=== PATIENT | female | born 1930 | race Two or more races ===

== ENCOUNTER 2019-04-04 00:39 | Inpatient (IN) | payer OTHER, MEDICARE ==
[~2019-04-04] VITALS: Ht 142.2 cm; Wt 45.4 kg
[2019-04-04 03:30] VITALS: BP 117/50
[2019-04-04 04:30] VITALS: BP 111/50
--- NOTE | 2019-04-04 04:30 | NUR ---
TELE/RN NOTES RECEIVED NEW DIRECT ADMIT PATIENT FROM [facility] RECEIVED ON A GURNEY ACCOMPANIED BY 2 EMT AND FAMILY MEMBERS. PATIENT AWAKE, ALERT X2, TAJIK SPEAKING, LILA CARDENAS ASSISTED WITH TRANSLATION. PATIETN APPEAR WEAK, SKIN WARM TO TOUCH, OPENS EYES WITH UPPER DENTURES, WEARS GLASSES AND HEARING AIDS. CAN FOLLOW SIMPLE COMMANDS, FAMILY WILL BRING HOME MEDICATIONS, UNABLE TO RECALL THEM. TO FOLLOW UP ADMITTING DR, WITH HX OF HYPERTENSION AND CONCERN OF ABDOMINAL PAIN WITH FEVER AND WEAKNESS, WITH LOW SODIUM LEFT AC GAUGE 20 INTACT AND PATENT, BELONGINGS CHECK, JAIRON SOUNDS CLEAR, ON OXYGEN AT 2L VIA NC, RESPIRATIONS EVEN AND UNLABORED, DENIES PAIN. ROOM ORIENTATION PROVIDED WILL MONITOR.
--- NOTE | 2019-04-04 06:07 | NUR ---
TELE/RN NOTES TELE READING AT NORMAL SINUS RHYTHM WITH SINUS ARITHMIA ON EKG READING. MD BURNS ADMITTING MD, REPORTED PATIENT ARRIVAL, MEDICATION TO BE RECONCILED AND CT ABDOMINAL PELVIS WITH CONTRAST FINDING WITH MODERATELY ENLARGED HEART, LEFT KIDNEY DECREASED ENHANCEMENT ON LIVER POLE FOR PYLONEPHRITIS. MADE AWARE,
[2019-04-04] MEDS ORDERED: ZOLPIDEM TARTRATE 5 MG TABLET PO PRN (06:30)
[2019-04-04] MEDS ORDERED: MAGNESIUM HYDROXIDE 30 ML UDC PO PRN (06:30)
[2019-04-04] MEDS ORDERED: HYDROCODONE/APAP 5/325MG 1 EACH TABLET PO PRN (06:30)
[2019-04-04] MEDS ORDERED: Z GUARD REMEDY 2 OZ OINT TP PRN (06:30)
[2019-04-04] MEDS ORDERED: ONDANSETRON HCL/PF 4 MG/2 ML VIAL IVP PRN (06:30)
[2019-04-04] MEDS ORDERED: MAG HYDROX/AL HYDROX/SIMETH 30 ML UDC PO PRN (06:30)
[2019-04-04] MEDS ORDERED: ACETAMINOPHEN 325 MG TABLET PO PRN (06:30)
--- NOTE | 2019-04-04 06:43 | NUR ---
TELE/RN NOTES PER FAMILY WILL PROVIDE HOME MEDICATION AND BRING MEDIACTION TO CLARIFY THE DOSES SUCH DILTIAZEM 180 MG DAILY REPORTED .
[2019-04-04 07:15] LABS: BASOPHILS % (AUTO) 0.3 % (0.0-2.0); EOSINOPHILS % (AUTO) 1.2 % (0.0-6.0); HEMATOCRIT 35 % (33-45); HEMOGLOBIN 11.6 g/dL (11.5-14.8); LYMPHOCYTES % (AUTO) 8.6 % (20.0-44.0); MEAN CORPUSCULAR HGB CONC 33 g/dl (31.0-36.0); MEAN CORPUSCULAR VOLUME 89 fL (82-100); MONOCYTES # (AUTO) 1.4 /CMM (0.1-1.30); MONOCYTES % (AUTO) 11.3 % (2.0-12.0); NEUTROPHILS # (AUTO) 9.6 /CMM (1.8-8.9); NEUTROPHILS % (AUTO) 78.6 % (43.0-81.0); PLATELET COUNT (AUTO) 412 /CMM (150-450); WHITE BLOOD COUNT (AUTO) 12.2 K/uL (4.3-11.0)
[2019-04-04 07:41] LABS: ALANINE AMINOTRANSFERASE 19 U/L (12-78); ALBUMIN 2.7 g/dL (3.4-5.0); ALKALINE PHOSPHATASE 69 U/L (46-116); ASPARTATE AMINOTRANSFERASE 16 U/L (15-37); BILIRUBIN,TOTAL 0.2 mg/dL (0.2-1.0); CALCIUM, SERUM 9.2 mg/dL (8.5-10.1); CARBON DIOXIDE 28 mmol/L (21-32); CHLORIDE 101 mmol/L (98-107); CREATININE 1.2 mg/dL (0.6-1.3); GLUCOSE 102 mg/dL (74-106); MAGNESIUM 1.8 mg/dL (1.8-2.4); PHOSPHORUS 2.7 mg/dL (2.5-4.9); POTASSIUM 3.9 mmol/L (3.5-5.1); SODIUM SERUM 135 mmol/L (136-145); UREA NITROGEN, BLOOD 24 mg/dL (7-18)
[2019-04-04 07:52] LABS: THYROID STIMULATING HORMONE 1.787 uIU/mL (0.358-3.74)
[2019-04-04 08:00] VITALS: BP 118/59
--- NOTE | 2019-04-04 08:00 | NUR ---
SHOE SALESMAN OPENING NOTES Received Patient comfortable and asleep in bed. A/O x 2-3. VS stable with no acute distress. Breathing even and unlabored on room air with no respiratory distress. No signs and symptoms of pain at this time. Telemonitor in place and operational reading SR with 1st Degree Block and PVC with HR-74. 20g PIV on LAC clean, dry, intact and flushing well. Bilateral hearing aids are in bilateral ears. Safety precautions in place. Bed locked and set to lowest position with side rails x 2 up. Will continue to monitor.
[2019-04-04] MEDS: LEVOTHYROXINE SODIUM 75 MCG TABLET PO SCH (08:54)
[2019-04-04] MEDS: PANTOPRAZOLE 40 MG TABLET.DR PO SCH (08:54)
[2019-04-04] MEDS: IV NS 0.9% 1,000 ML IV PRN (08:55)
[2019-04-04] MEDS: DILTIAZEM HCL CD 180 MG PO SCH (08:55)
[2019-04-04] MEDS: METOPROLOL TARTRATE 50 MG TABLET PO SCH ×2 (10:40→17:19)
[2019-04-04] MEDS ORDERED: CEFTRIAXONE 1 G in IV D5W 50 ML IV SCH (11:00)
[2019-04-04] MEDS ORDERED: MELO-105 PO (12:05)
[2019-04-04] MEDS ORDERED: DILT180C92 PO (12:05)
[2019-04-04] MEDS ORDERED: ATOR10TA PO (12:05)
[2019-04-04] MEDS ORDERED: CHOL100044 PO (12:05)
[2019-04-04] MEDS ORDERED: MULT-447 PO (12:05)
[2019-04-04] MEDS ORDERED: CALC-20 PO (12:05)
[2019-04-04] MEDS ORDERED: MYRBETRIQ PO (12:05)
[2019-04-04] MEDS ORDERED: LEVO50TA8 PO (12:05)
[2019-04-04] MEDS ORDERED: METO50TA16 PO (12:05)
[2019-04-04] MEDS ORDERED: AMLO5TAB9 PO (12:05)
[2019-04-04] MEDS ORDERED: BIOT5000 PO (12:05)
[2019-04-04] MEDS ORDERED: PANT40TA4 PO (12:05)
[2019-04-04] MEDS ORDERED: LACT-58 PO (12:08)
[2019-04-04] MEDS: CEFTRIAXONE 1 G in IV D5W 50 ML IV SCH (13:14)
[2019-04-04 15:56] LABS: APPEARANCE,URINE SL CLOUDY (CLEAR); BILIRUBIN,URINE NEGATIVE (NEGATIVE); BLOOD, URINE TRACE Ery/uL (NEGATIVE); COLOR,URINE YELLOW (YELLOW); KETONES,URINE NEGATIVE (NEGATIVE); LEUKOCYTE ESTERASE ,URINE 1+ (NEGATIVE); NITRITE, URINE NEGATIVE (NEGATIVE); PROTEIN,URINE NEGATIVE (NEGATIVE); UGLUCOSE NEGATIVE (NEGATIVE); UROBILINOGEN,URINE 0.2 EU/dL (0.2)
[2019-04-04 16:00] VITALS: BP 118/59
[2019-04-04 16:22] LABS: BACTERIA,URINE Rare /HPF (None Seen); RBC,URINE 0-3 /HPF (0-2); SQUAMOUS EPITHELIAL CELL,UR Few /HPF (None Seen)
--- NOTE | 2019-04-04 19:22 | NUR ---
MS EPHRAIM OPENING NOTES Patient awake and watching TV in bed. A/O x 2-3, Liberian speaking. VS stable with no acute distress. Breathing even and unlabored on room air with no respiratory distress. Denies pain at this time. 20g PIV on LAC clean, dry, intact and flushing well with NS running at 75ml/hr. Bilateral hearing aids are in bilateral ears. Safety precautions in place. Bed locked and set to lowest position with side rails x 2 up. All needs rendered at this time. Family at bedside. Will endorse plan of care to oncoming shift. Addendum: 04/04/19 at 1923 by AZAEL RICHARDSON RN MS YE CLOSING NOTES
--- NOTE | 2019-04-04 19:50 | NUR ---
MS RN NOTE: PATIENT RESTING IN BED, NO ACUTE DISTRESS NOTED, FAMILY AT BEDSIDE. BREATHING EVEN AND UNLABORED, NO SOB NOTED. IV TO LAC IN PLACE, INFUSING NS AT 75ML/HR. BED LOCKED AND IN LOWEST POSITION, CALL LIGHT IN REACH. WILL CONTINUE TO MONITOR.
[2019-04-04 20:00] VITALS: BP 133/69
--- NOTE | 2019-04-05 03:00 | NUR ---
MS RN NOTE: PATIENT RESTING IN BED, NO ACUTE DISTRESS NOTED. BREATHING EVEN AND UNLABORED, NO SOB NOTED. BED LOCKED AND IN LOWEST POSITION, CALL LIGHT IN REACH. WILL CONTINUE TO MONITOR.
--- NOTE | 2019-04-05 06:20 | NUR ---
MS RN NOTE: PATIENT RESTING IN BED, NO ACUTE DISTRESS NOTED. BREATHING EVEN AND UNLABORED, NO SOB NOTED. IV TO LAC IN PLACE, INFUSING NS AT 75ML/HR. BED LOCKED AND IN LOWEST POSITION, CALL LIGHT IN REACH. WILL ENDORSE TO DAY NURSE TO CONTINUE WITH PLAN OF CARE.
[2019-04-05 06:39] LABS: BASOPHILS % (AUTO) 0.4 % (0.0-2.0); EOSINOPHILS % (AUTO) 1.4 % (0.0-6.0); HEMATOCRIT 34 % (33-45); HEMOGLOBIN 11.4 g/dL (11.5-14.8); LYMPHOCYTES # (AUTO) 0.8 /CMM (0.8-4.8); LYMPHOCYTES % (AUTO) 7.6 % (20.0-44.0); MEAN CORPUSCULAR HGB CONC 34 g/dl (31.0-36.0); MEAN CORPUSCULAR VOLUME 88 fL (82-100); MONOCYTES # (AUTO) 1.1 /CMM (0.1-1.30); MONOCYTES % (AUTO) 10.1 % (2.0-12.0); NEUTROPHILS # (AUTO) 8.9 /CMM (1.8-8.9); NEUTROPHILS % (AUTO) 80.5 % (43.0-81.0); PLATELET COUNT (AUTO) 454 /CMM (150-450); RED BLOOD CELL COUNT(AUTO) 3.86 MIL/uL (4.0-5.2)
[2019-04-05 06:45] LABS: ALANINE AMINOTRANSFERASE 19 U/L (12-78); ALBUMIN 2.5 g/dL (3.4-5.0); ALKALINE PHOSPHATASE 69 U/L (46-116); ASPARTATE AMINOTRANSFERASE 18 U/L (15-37); BILIRUBIN,TOTAL 0.2 mg/dL (0.2-1.0); CALCIUM, SERUM 8.9 mg/dL (8.5-10.1); CARBON DIOXIDE 30 mmol/L (21-32); CHLORIDE 100 mmol/L (98-107); CREATININE 0.9 mg/dL (0.6-1.3); GLUCOSE 111 mg/dL (74-106); MAGNESIUM 1.6 mg/dL (1.8-2.4); PHOSPHORUS 2.4 mg/dL (2.5-4.9); POTASSIUM 3.5 mmol/L (3.5-5.1); SODIUM SERUM 136 mmol/L (136-145); TOTAL PROTEIN, SERUM 6.8 g/dL (6.4-8.2); UREA NITROGEN, BLOOD 13 mg/dL (7-18)
[2019-04-05 06:49] LABS: CHOLESTEROL 109 mg/dL (<200); HDL CHOLESTEROL 36 mg/dL (40-60); LDL 56 mg/dL (0-99); TRIGLYCERIDES 56 mg/dL (30-150)
--- NOTE | 2019-04-05 07:34 | NUR ---
MS RN OPENING NOTES RECEIVED PT AWAKE, AMBULATORY WITH CANE AND 1 ASSIST. ITALIAN SPEAKING. TOLERATING RA, WITH NO ACUTE RESPIRATORY DISTRESS NOTED. PT DENIES ANY PAIN OR DISCOMFORT. ALSO, DENIES ANY CONCERNS AND QUESTIONS. IVF NS AT 75ML/HR TO LAC G20, INTACT AND FLUID INFUSING WELL. PT KEPT COMFORTABLE. PT'S BED IN LOWEST, LOCKED POSITION WITH SR X2. CALL LIGHT WITHIN REACH. WILL CONTINUE PLAN OF CARE.
[2019-04-05 08:00] VITALS: BP 118/54
[2019-04-05] MEDS: LEVOTHYROXINE SODIUM 75 MCG TABLET PO SCH (08:12)
[2019-04-05] MEDS: PANTOPRAZOLE 40 MG TABLET.DR PO SCH (08:12)
[2019-04-05] MEDS: DILTIAZEM HCL CD 180 MG PO SCH (08:12)
[2019-04-05] MEDS: METOPROLOL TARTRATE 50 MG TABLET PO SCH ×2 (08:12→17:06)
[2019-04-05] MEDS: Magnesium 1GM/D5W 100ML PREMIX 100 ML IV SCH ×2 (10:42→12:06)
[2019-04-05] MEDS ORDERED: K PHOS NEUTRAL 250 MG TABLET PO ONE (11:00)
[2019-04-05] MEDS: IV NS 0.9% 1,000 ML IV PRN (11:02)
[2019-04-05] MEDS ORDERED: LEVO500T75 PO (11:15)
[2019-04-05] MEDS: CEFTRIAXONE 1 G in IV D5W 50 ML IV SCH (13:25)
[2019-04-05] MEDS ORDERED: PNEUMOCOCCAL 23-VAL P-SAC VAC 0.5 ML VIAL SQ ONE (15:00)
--- NOTE | 2019-04-05 15:29 | NUR ---
MS RN NOTES PNEUMONIA VACCINE 23 GIVEN TO LEFT DELTOID PER PT'S REQUEST AND PER FAMILY PRIOR DISCHARGE.
[2019-04-05 16:00] VITALS: BP 120/64
[2019-04-05 17:06] VITALS: BP 120/64
--- NOTE | 2019-04-05 18:07 | NUR ---
MS MEDICAL STAFF CREDENTIALING COORDINATOR NOTES PT TO DISCHARGE TO HOME. PT PICKED UP BY 2 FAMILY MEMBERS. REVIEWED AND SIGNED DISCHARGE INSTRUCTIONS AND INVENTORY LIST BY SON/DEBBY. ALL BELONGINGS WITH THE PATIENT AND FAMILY. PT TOLERATING RA, WITH NO ACUTE RESPIRATORY DISTRESS NOTED. PT AMBULATORY WITH OWN FWW. PT DENIES ANY PAIN OR DISCOMFORT AT THE TIME OF DISCHARGE. VS STABLE AND RECORDED. PT CLAIMED SKIN IS INTACT AND REFUSED TO TAKE PICTURES OF SKIN. ALL NEEDS AND CARE ATTENDED. PIV TO LAC REMOVED, APPLIED DRY DRESSING. INTERIOR WALL ASSEMBLER ESCORTED PT WITH FAMILY TO THE LOBBY. PT LEFT THE UNIT AT 1755. CN/LESLI AND MEDICAL DEVICE ASSEMBLER/TS AWARE OF DISCHARGE.
== END 2019-04-05 17:55 | disposition home or self-care (01) | DRG 463 ==
LOC: TELE 04:24 → MED 12:26
PROVIDERS: ADMIT Internal Medicine; ATTEND Internal Medicine
DX: N10 Acute pyelonephritis (principal); N17.0 Acute kidney failure with tubular necrosis; E87.1 Hypo-osmolality and hyponatremia; E88.09 Other disorders of plasma-protein metabolism, not elsewhere classified; M48.04 Spinal stenosis, thoracic region; E44.1 Mild protein-calorie malnutrition; M48.54XA Collapsed vertebra, not elsewhere classified, thoracic region, initial encounter for fracture; B96.89 Other specified bacterial agents as the cause of diseases classified elsewhere; I10 Essential (primary) hypertension; N39.0 Urinary tract infection, site not specified; E03.9 Hypothyroidism, unspecified; Z90.49 Acquired absence of other specified parts of digestive tract; Z83.3 Family history of diabetes mellitus; Z79.899 Other long term (current) drug therapy; M48.061 Spinal stenosis, lumbar region without neurogenic claudication; N28.1 Cyst of kidney, acquired
CPT/HCPCS: 36415; 80053-TC; 80061-TC; 81000-TC; 83735-TC; 84100-TC; 84443-TC; 85025-TC; 87040-TC; 87081-TC; 87086-TC; 90732; 97116-TC; 97530-TC; G0378; J0696; J3475; J7030; J7060

== ENCOUNTER 2020-07-19 14:50 | Emergency (ER) | payer MEDICARE, OTHER ==
[~2020-07-19] VITALS: Ht 149.9 cm; Wt 51.3 kg
[~2020-07-19 14:50] MED LIST: AMLO5TAB9 PO; ATOR10TA PO; BIOT5000 PO; CALC-20 PO; CHOL100044 PO; DILT180C92 PO; LACT-58 PO; LEVO500T23 PO; LEVO50TA8 PO; MELO-105 PO; METO50TA16 PO; MULT-447 PO; MYRBETRIQ PO; PANT40TA49 PO
--- NOTE | 2020-07-19 15:00 | NUR ---
cordell, c/o abd pain x 1 month, +nausea vomiting since yesterday. 9/10 pain scale. Patient a/ox4, peruvian speaking, verbally responsive, no distress noted. Attached to the shelter monitor.
[2020-07-19] MEDS ORDERED: ONDANSETRON HCL/PF 4 MG/2 ML VIAL ONE (15:09)
--- NOTE | 2020-07-19 15:27 | NUR ---
IV LINE ESTABLISHED, BLOOD DRAWN FROM LINE AND SENT TO LAB. PATIENT PLACED ON A BED SALCIDO FOR URINE SAMPLE.
[2020-07-19] MEDS ORDERED: IV NS 0.9% 500 ML BAG IV ONE (15:30)
[2020-07-19 15:33] LABS: BASOPHILS # (AUTO) 0.1 /CMM (0.0-0.2); BASOPHILS % (AUTO) 1.2 % (0.0-2.0); EOSINOPHILS % (AUTO) 3.1 % (0.0-6.0); HEMATOCRIT 29 % (33-45); HEMOGLOBIN 10.2 g/dL (11.5-14.8); LYMPHOCYTES # (AUTO) 0.8 /CMM (0.8-4.8); LYMPHOCYTES % (AUTO) 13.8 % (20.0-44.0); MEAN CORPUSCULAR HGB CONC 35 g/dl (31.0-36.0); MEAN CORPUSCULAR VOLUME 91 fL (82-100); MONOCYTES # (AUTO) 0.7 /CMM (0.1-1.30); MONOCYTES % (AUTO) 10.8 % (2.0-12.0); NEUTROPHILS # (AUTO) 4.3 /CMM (1.8-8.9); NEUTROPHILS % (AUTO) 71.1 % (43.0-81.0); PLATELET COUNT (AUTO) 456 /CMM (150-450); RED BLOOD CELL COUNT(AUTO) 3.25 MIL/uL (4.0-5.2)
[2020-07-19 15:59] LABS: CALCIUM, SERUM 8.7 mg/dL (8.5-10.1); CARBON DIOXIDE 30 mmol/L (21-32); CHLORIDE 93 mmol/L (98-107); CREATININE 0.8 mg/dL (0.6-1.3); GLUCOSE 92 mg/dL (74-106); POTASSIUM 4.4 mmol/L (3.5-5.1); SODIUM SERUM 125 mmol/L (136-145); UREA NITROGEN, BLOOD 11 mg/dL (7-18)
[2020-07-19 16:05] LABS: ALANINE AMINOTRANSFERASE 25 U/L (12-78); ALBUMIN 2.7 g/dL (3.4-5.0); ALKALINE PHOSPHATASE 76 U/L (46-116); ASPARTATE AMINOTRANSFERASE 23 U/L (15-37); BILIRUBIN,DIRECT 0.1 mg/dL (0.0-0.2); BILIRUBIN,TOTAL 0.4 mg/dL (0.2-1.0); LIPASE 109 U/L (73-393); TOTAL PROTEIN, SERUM 6.4 g/dL (6.4-8.2)
--- NOTE | 2020-07-19 16:22 | NUR ---
URINE SAMPLE SENT TO LAB
[2020-07-19] MEDS ORDERED: CALC-17 PO (16:29)
[2020-07-19] MEDS ORDERED: MULT-1200 PO (16:29)
[2020-07-19] MEDS ORDERED: ASPI-1169 PO (16:30)
[2020-07-19 16:53] LABS: APPEARANCE,URINE CLEAR (CLEAR); BILIRUBIN,URINE NEGATIVE (NEGATIVE); BLOOD, URINE NEGATIVE Ery/uL (NEGATIVE); COLOR,URINE YELLOW (YELLOW); KETONES,URINE NEGATIVE (NEGATIVE); LEUKOCYTE ESTERASE ,URINE TRACE (NEGATIVE); NITRITE, URINE NEGATIVE (NEGATIVE); PROTEIN,URINE NEGATIVE (NEGATIVE); UGLUCOSE NEGATIVE (NEGATIVE); UROBILINOGEN,URINE 0.2 EU/dL (0.2)
--- NOTE | 2020-07-19 17:00 | NUR ---
IV removed. Catheter intact and site benign. Pressure and 4x4 applied to site. No bleeding noted.
[2020-07-19 17:03] LABS: BACTERIA,URINE RARE /HPF (None Seen); RBC,URINE 0-2 /HPF (0-2); SQUAMOUS EPITHELIAL CELL,UR Few /HPF (None Seen)
--- NOTE | 2020-07-19 17:08 | NUR ---
DR. FAY TALKED TO PATIENT'S SON ABOUT PATIENT'S CONDITION AND PLAN OF CARE. Patientand son does not wish to proceed with medical care recommended by Dr. Fay. Patient given information related to possible complications, up to and including , which could occur as a result of leaving the hospital at this time. Patient verbalizes understanding of risks involved due to leaving against medical advice. Patient has signed AMA form.
[2020-07-19 17:10] VITALS: BP 128/62
== END 2020-07-19 17:11 | disposition left against medical advice (07) ==
LOC: ER 14:54
DX: R10.13 Epigastric pain (principal); E87.1 Hypo-osmolality and hyponatremia; D64.9 Anemia, unspecified; R11.10 Vomiting, unspecified; E78.5 Hyperlipidemia, unspecified; I10 Essential (primary) hypertension; E03.9 Hypothyroidism, unspecified; Z98.890 Other specified postprocedural states; Z88.0 Allergy status to penicillin; Z79.82 Long term (current) use of aspirin; Z79.899 Other long term (current) drug therapy
CPT/HCPCS: 36415; 71045; 74176; 76705; 80048; 80076; 81001; 83690; 84484; 85025; 93005; 99285; J7040; 81000-TC; J2405